=== PATIENT | female | born 1985 | race Caucasian/White ===

== ENCOUNTER 2021-04-24 11:29 | Emergency (ER) | payer OTHER ==
[2021-04-24 11:39] VITALS: TEMP 98
[2021-04-24] MEDS ORDERED: ONDANSETRON 4 MG/2 ML VIAL IVP STA ×2 (11:53→14:33)
[2021-04-24] MEDS ORDERED: SODIUM CHLORIDE 0.9% 1,000 ML IV STA (11:53)
[2021-04-24] MEDS ORDERED: MECLIZINE 12.5 MG TAB PO STA (11:53)
[2021-04-24 12:40] LABS: ALT 10 U/L (4-34); AST 16 U/L (14-36); African American GFR (CKD) >90 (>60 ml/min/1.73 sqM); Albumin 4.7 g/dL (3.5-5.0); Alkaline Phosphatase 45 U/L (38-126); Anion Gap 8 mmol/L; Blood Urea Nitrogen 13 mg/dL (7-17); Calcium 9.8 mg/dL (8.4-10.2); Carbon Dioxide 24 mmol/L (22-30); Chloride 105 mmol/L (98-107); Glucose 98 mg/dL (74-99); Non-African American GFR(CKD) >90 (>60 ml/min/1.73 sqM); Potassium 4.2 mmol/L (3.5-5.1); Sodium 137 mmol/L (137-145); Total Bilirubin 0.3 mg/dL (0.2-1.3); Total Protein 7.4 g/dL (6.3-8.2)
[2021-04-24 13:07] LABS: Basophils % (A) 0 %; Eosinophils # (A) 0.1 k/uL (0-0.7); Eosinophils % (A) 1 %; HCT 42.4 % (34.0-46.0); HGB 14.5 gm/dL (11.4-16.0); Lymphocytes # (A) 0.7 k/uL (1.0-4.8); Lymphocytes % (A) 8 %; MCH 30.9 pg (25.0-35.0); MCHC 34.3 g/dL (31.0-37.0); Monocytes # (A) 0.2 k/uL (0-1.0); Monocytes % (A) 3 %; Neutrophils # (A) 7.6 k/uL (1.3-7.7); Neutrophils % (A) 88 %; Platelet Count 321 k/uL (150-450); RBC 4.71 m/uL (3.80-5.40); RDW 13.3 % (11.5-15.5); WBC 8.7 k/uL (3.8-10.6)
[2021-04-24] MEDS ORDERED: ACETAMINOPHEN TAB 500 MG TAB PO STA (13:50)
--- NOTE | 2021-04-24 14:18 | ED ---
General Adult HPI - General Chief complaint: Dizziness Stated complaint: dizziness Time Seen by Provider: 04/24/21 11:41 Source: patient, EMS, RN notes reviewed Mode of arrival: EMS Limitations: no limitations - History of Present Illness Initial comments: 35-year-old female presented emergency department complaining of waking up dizzy and nauseous this morning. She notes she has a history of fainting spells dizziness as a child but none recently. She notes that the room felt like it was spinning inside of her feeling of spinning. She notes that she was moving nauseous when this episode happened. She was otherwise laying in bed comfortable in no acute pain in the exam interview. She denied any other issues or complaints this time. She denied any chest pain first breath headache nausea vomiting diarrhea constipation fever fatigue chills. - Related Data Home Medications Medication Instructions Recorded Confirmed Cetirizine HCl [Zyrtec] 10 mg PO DAILY 04/24/21 04/24/21 Phentermine HCl 18.75 mg PO [id number] 04/24/21 04/24/21 Topiramate [Topamax] 12.5 mg PO HS 04/24/21 04/24/21 Previous Rx's Medication Instructions Recorded Meclizine [Antivert] 25 mg PO TID PRN #15 tab 04/24/21 Ondansetron Odt [Zofran Odt] 4 mg PO Q8HR PRN #10 tab 04/24/21 Allergies Allergy/AdvReac Type Severity Reaction Status Date / Time sulfamethoxazole Allergy Unknown Verified 04/24/21 14:01 [From Bactrim] trimethoprim [From Bactrim] Allergy Unknown Verified 04/24/21 14:01 Review of Systems ROS Statement: Those systems with pertinent positive or pertinent negative responses have been documented in the HPI. ROS Other: All systems not noted in ROS Statement are negative. Past Medical History Past Medical History: No Reported History History of Any Multi-Drug Resistant Organisms: None Reported Past Surgical History: Section Additional Past Surgical History / Comment(s): x2 Past Psychological History: No Psychological Hx Reported Smoking Status: Never smoker Past Alcohol Use History: None Reported Past Drug Use History: None Reported General Exam Limitations: no limitations General appearance: alert, in no apparent distress Head exam: Present: atraumatic, normocephalic, normal inspection Eye exam: Present: normal appearance, PERRL, EOMI. Absent: scleral icterus, conjunctival injection, periorbital swelling Neck exam: Present: normal inspection Respiratory exam: Present: normal lung sounds bilaterally. Absent: respiratory distress, wheezes, rales, rhonchi, stridor Cardiovascular Exam: Present: regular rate, normal rhythm, normal heart sounds. Absent: systolic murmur, diastolic murmur, rubs, gallop, clicks GI/Abdominal exam: Present: soft, normal bowel sounds. Absent: distended, tenderness, guarding, rebound, rigid Extremities exam: Present: normal inspection, full ROM, normal capillary refill. Absent: tenderness, pedal edema, joint swelling, calf tenderness Neurological exam: Present: alert, oriented X3 Psychiatric exam: Present: normal affect, normal mood Skin exam: Present: warm, dry, intact, normal color. Absent: rash Course Vital Signs 04/24/21 04/24/21 04/24/21 11:33 12:34 13:48 Temperature 98.0 F Pulse Rate 67 75 Pulse Rate [ 89 Sitting] Pulse Rate [ 85 Standing] Pulse Rate [ 63 Supine] Respiratory 16 18 Rate Blood Pressure 107/79 104/64 Blood Pressure 105/78 [Sitting] Blood Pressure 97/78 [Standing] Blood Pressure 98/72 [Supine] O2 Sat by Pulse 100 100 Oximetry 04/24/21 04/24/21 14:41 15:08 Temperature Pulse Rate 70 68 Pulse Rate [ Sitting] Pulse Rate [ Standing] Pulse Rate [ Supine] Respiratory 18 16 Rate Blood Pressure 100/71 111/77 Blood Pressure [Sitting] Blood Pressure [Standing] Blood Pressure [Supine] O2 Sat by Pulse 100 100 Oximetry EKG Findings - EKG Comments: EKG Findings:: Ventricular rate 55 bpm, CO interval 164 ms, QRS duration 86 ms, QTC 413 ms, PRT axes 0/54/53, sinus bradycardia with sinus arrhythmia, low voltage QRS, borderline ECG. Medical Decision Making - Medical Decision Making 35-year-old female complaining of dizziness and nausea upon waking up while sitting up. Labs, 1 L normal saline, 25 mg of meclizine, 4 mg Zofran, orthostatic vitals ordered. EKG and sales planner ordered. Labs unremarkable. Case discussed with Dr. Florez, patient discharge home with follow-up primary care. Patient states that she is feeling well enough to go home and does not want to stay at the hospital. - Lab Data Result diagrams: 04/24/21 12:17 04/24/21 12:17 Lab Results 04/24/21 04/24/21 04/24/21 Range/Units 12:17 12:17 14:47 WBC 8.7 (3.8-10.6) k/uL RBC 4.71 (3.80-5.40) m/uL Hgb 14.5 (11.4-16.0) gm/dL Hct 42.4 (34.0-46.0) % MCV 90.0 (80.0-100.0) fL MCH 30.9 (25.0-35.0) pg MCHC 34.3 (31.0-37.0) g/dL RDW 13.3 (11.5-15.5) % Plt Count 321 (150-450) k/uL MPV 7.0 Neutrophils % 88 % Lymphocytes % 8 % Monocytes % 3 % Eosinophils % 1 % Basophils % 0 % Neutrophils # 7.6 (1.3-7.7) k/uL Lymphocytes # 0.7 L (1.0-4.8) k/uL Monocytes # 0.2 (0-1.0) k/uL Eosinophils # 0.1 (0-0.7) k/uL Basophils # 0.0 (0-0.2) k/uL Sodium 137 (137-145) mmol/L Potassium 4.2 (3.5-5.1) mmol/L Chloride 105 (98-107) mmol/L Carbon Dioxide 24 (22-30) mmol/L Anion Gap 8 mmol/L BUN 13 (7-17) mg/dL Creatinine 0.82 (0.52-1.04) mg/dL Est GFR (CKD-EPI)AfAm >90 (>60 ml/min/1.73 sqM) Est GFR (CKD-EPI)NonAf >90 (>60 ml/min/1.73 sqM) Glucose 98 (74-99) mg/dL Calcium 9.8 (8.4-10.2) mg/dL Total Bilirubin 0.3 (0.2-1.3) mg/dL AST 16 (14-36) U/L ALT 10 (4-34) U/L Alkaline Phosphatase 45 (38-126) U/L Total Protein 7.4 (6.3-8.2) g/dL Albumin 4.7 (3.5-5.0) g/dL Urine Color Yellow Urine Appearance Cloudy H (Clear) Urine pH 6.5 (5.0-8.0) Ur Specific [place] 1.019 (1.001-1.035) Urine Protein Trace H (Negative) Urine Glucose (UA) Negative (Negative) Urine Ketones Negative (Negative) Urine Blood Trace H (Negative) Urine Nitrite Negative (Negative) Urine Bilirubin Negative (Negative) Urine Urobilinogen <2.0 (<2.0) mg/dL Ur Leukocyte Esterase Small H (Negative) Urine RBC 2 (0-5) /hpf Urine WBC 4 (0-5) /hpf Ur Squamous Epith Cells 7 H (0-4) /hpf Urine Bacteria Occasional H (None) /hpf Urine Mucus Moderate H (None) /hpf Urine HCG, Qual (Not Detectd) 04/24/21 Range/Units 14:47 WBC (3.8-10.6) k/uL RBC (3.80-5.40) m/uL Hgb (11.4-16.0) gm/dL Hct (34.0-46.0) % MCV (80.0-100.0) fL MCH (25.0-35.0) pg MCHC (31.0-37.0) g/dL RDW (11.5-15.5) % Plt Count (150-450) k/uL MPV Neutrophils % % Lymphocytes % % Monocytes % % Eosinophils % % Basophils % % Neutrophils # (1.3-7.7) k/uL Lymphocytes # (1.0-4.8) k/uL Monocytes # (0-1.0) k/uL Eosinophils # (0-0.7) k/uL Basophils # (0-0.2) k/uL Sodium (137-145) mmol/L Potassium (3.5-5.1) mmol/L Chloride (98-107) mmol/L Carbon Dioxide (22-30) mmol/L Anion Gap mmol/L BUN (7-17) mg/dL Creatinine (0.52-1.04) mg/dL Est GFR (CKD-EPI)AfAm (>60 ml/min/1.73 sqM) Est GFR (CKD-EPI)NonAf (>60 ml/min/1.73 sqM) Glucose (74-99) mg/dL Calcium (8.4-10.2) mg/dL Total Bilirubin (0.2-1.3) mg/dL AST (14-36) U/L ALT (4-34) U/L Alkaline Phosphatase (38-126) U/L Total Protein (6.3-8.2) g/dL Albumin (3.5-5.0) g/dL Urine Color Urine Appearance (Clear) Urine pH (5.0-8.0) Ur Specific [place] (1.001-1.035) Urine Protein (Negative) Urine Glucose (UA) (Negative) Urine Ketones (Negative) Urine Blood (Negative) Urine Nitrite (Negative) Urine Bilirubin (Negative) Urine Urobilinogen (<2.0) mg/dL Ur Leukocyte Esterase (Negative) Urine RBC (0-5) /hpf Urine WBC (0-5) /hpf Ur Squamous Epith Cells (0-4) /hpf Urine Bacteria (None) /hpf Urine Mucus (None) /hpf Urine HCG, Qual Not Detected (Not Detectd) - EKG Data -: EKG Interpreted by Ms EKG shows normal: sinus rhythm Rate: normal EKG Comments: Ventricular rate 55 bpm, CO interval 164 ms, QRS duration 86 ms, QTC 413 ms, PRT axes 0/54/53, sinus bradycardia with sinus arrhythmia, low voltage QRS, borderline ECG. Disposition Clinical Impression: Dehydration, Dizziness, Nausea & vomiting Disposition: HOME SELF-CARE Condition: Stable Instructions (If sedation given, give patient instructions): Dizziness (ED) Additional Instructions: Please return to the Emergency Department if symptoms worsen or any other concerns. Follow-up with primary care the next 1-2 days. Take Zofran and Antivert as prescribed. Get plenty rest. Is patient prescribed a controlled substance at d/c from ED?: No Referrals: Jerrica Lenz DO [Primary Care Provider] - 1-2 days Time of Disposition: 15:21
[2021-04-24 15:09] VITALS: BP 111/77; PULSE 68; RESP 16
[2021-04-24 15:16] LABS: Appearance,Urine Cloudy (Clear); Bacteria,Urine Occasional /hpf; Bilirubin,Urine Negative (Negative); Blood,Urine Trace (Negative); Color,Urine Yellow; Glucose,Urine (UA) Negative (Negative); Ketones,Urine Negative (Negative); Leukocyte Esterase,Urine Small (Negative); Mucus,Urine Moderate /hpf; Nitrite,Urine Negative (Negative); PH, Urine 6.5 (5.0-8.0); Protein,Urine Trace (Negative); RBC,Urine 2 /hpf (0-5); Specific Gravity,Urine 1.019 (1.001-1.035); Squamous Epithelial Cell,Urine 7 /hpf (0-4); Urobilinogen,Urine <2.0 mg/dL (<2.0); WBC,Urine 4 /hpf (0-5)
== END 2021-04-24 15:40 | disposition home or self-care (01) ==
LOC: EC 11:29
DX: R42 Dizziness and giddiness (principal); E86.0 Dehydration; R11.2 Nausea with vomiting, unspecified; Z88.1 Allergy status to other antibiotic agents; Z88.2 Allergy status to sulfonamides
CPT/HCPCS: 99284; 96374; 96376; 96361 ×2; 36415; 93005; 80053; 85025; 81001; 81025; J2405